=== PATIENT | female | born 1995 | race Caucasian/White ===

== ENCOUNTER 2016-06-14 08:29 | Emergency (ER) | payer OTHER ==
[~2016-06-14] VITALS: Ht 154.9 cm; Wt 76.0 kg
[2016-06-14] MEDS ORDERED: DEXILANT60 MG PO (08:57)
[2016-06-14] MEDS ORDERED: ONDANSETRON ODT8 MG PO (08:57)
[2016-06-14] MEDS ORDERED: TRINESSA LO TA1 EACH PO (08:57)
[2016-06-14 10:05] LABS: INFLUENZA A VIRAL ANTIGEN NEGATIVE; INFLUENZA B VIRAL ANTIGEN NEGATIVE
[2016-06-14 10:26] LABS: INTERNAL CONTROL VALID? YES; MONOSPOT (MONONUCLEOSIS SEROL) NEGATIVE
[2016-06-14] MEDS ORDERED: NAPROSYN500 MG PO (10:55)
[2016-06-14 11:08] VITALS: BP 105/66
== END 2016-06-14 11:09 | disposition home or self-care (01) ==
LOC: EME 08:29
PROVIDERS: Physician Assistant
DX: R51 Headache (principal); R05 Cough; R11.0 Nausea; Z88.2 Allergy status to sulfonamides
CPT/HCPCS: 86308; 87502; 99281; 99284